=== PATIENT | male | born 1950 | race Caucasian/White ===

== ENCOUNTER 2017-06-22 12:04 | Emergency (ER) | payer OTHER, MEDICAID ==
[~2017-06-22] VITALS: Ht 167.6 cm; Wt 66.7 kg
[2017-06-22 12:04] VITALS: BP 136/70
--- NOTE | 2017-06-22 12:04 | NUR ---
Pt placed in overflow chair by EMS.
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
--- NOTE | 2017-06-22 12:49 | NUR ---
Dr. Eugene evaluating pt in overflow chair.
--- NOTE | 2017-06-22 13:22 | NUR ---
Pt in x-ray at this time.
--- NOTE | 2017-06-22 14:35 | NUR ---
Pt w/c assisted to bed 11
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
--- NOTE | 2017-06-22 15:55 | NUR ---
SUTURE WOUND TO MY HANDS & DERMABON TO L 2ND TOE DONE BY DR HOWE. PT TOLERATED PROCEDURE WELL.
[2017-06-22] MEDS ORDERED: LIDOCAINE 1% ***ER ONLY *** 50 ML ONE (15:58)
[2017-06-22] MEDS ORDERED: LIDOCAINE 1% ***ER ONLY *** 10 MG/ML VIAL INJ ONE (16:05)
[2017-06-22] MEDS ORDERED: ceFAZolin 1,000 MG VIAL IM ONE (16:05)
[2017-06-22 16:38] VITALS: BP 134/87
== END 2017-06-22 16:37 | disposition home or self-care (01) ==
LOC: MED 12:04
DX: S62.211A Bennett's fracture, right hand, initial encounter for closed fracture (principal); S91.115A Laceration without foreign body of left lesser toe(s) without damage to nail, initial encounter; V23.4XXA Motorcycle driver injured in collision with car, pick-up truck or van in traffic accident, initial encounter; Y93.I9 Activity, other involving external motion; Y92.488 Other paved roadways as the place of occurrence of the external cause; Y99.8 Other external cause status
CPT/HCPCS: 12002; 29125; 73130; 73562; 73610; 73630; 90471; 90715; 96372; 99284; J0690; J2001